=== PATIENT | female | born 1990 | race Two or more races ===

== ENCOUNTER 2017-03-05 09:17 | Emergency (ER) | payer SELFPAY ==
[~2017-03-05] VITALS: Ht 167.6 cm; Wt 72.6 kg
--- NOTE | 2017-03-05 09:41 | Emergency Room Report ---
History of Present Illness General Chief Complaint: Sore Throat Source: Patient Present Illness HPI Patient is a 27-year-old female presented after having one day of increased sore throat. Patient was noted to have some increased difficulty with swallowing. She reports having subjective fever. She denies any cough. She reports having prior history of tonsillitis. She denies any nasal congestion. She reports having an IUD. Allergies: Coded Allergies: No Known Allergies (Unverified , 03/05/17) Patient History Past Medical History: see triage record Last Menstrual Period: last month Now: No Reviewed Nursing Documentation: PMH: Agreed, PSxH: Agreed Nursing Documentation-PMH Past Medical History: No Stated History Review of Systems All Other Systems: negative except mentioned in HPI Physical Exam Vital Signs Date Time Temp Pulse Resp B/P (MAP) Pulse Ox O2 Delivery O2 Flow Rate FiO2 03/05/17 09:20 98.1 92 14 118/81 96 Room Air General Appearance: well appearing, no apparent distress, alert, GCS 15, non- toxic Head: normocephalic, atraumatic ENT: hearing grossly normal, normal voice, tonsillar swelling, pharyngeal erythema, tonsillar exudate Neck: full range of motion, supple Respiratory: no respiratory distress, speaking full sentences Musculoskeletal: no calf tenderness Neurologic: normal gait Psychiatric: mood/affect normal Skin: no rash Medical Decision Making Diagnostic Impression: Primary Impression: Acute tonsillitis ER Course Patient presented for sore throat. Differential diagnosis included but was not limited to meningitis, exudative tonsillitis, retropharyngeal abscess, epiglottitis, strep pharyngitis. The patient appears to have a tonsillitis. There is no evidence of abscess at this time. Patient's uvula is midline. The patient was given Decadron as well as IM penicillin The patient is advised to follow up with primary care doctor in 1-2 days. Patient is advised to return if any worsening condition or if any changes in status that are concerning. Last Vital Signs Date Time Temp Pulse Resp B/P (MAP) Pulse Ox O2 Delivery O2 Flow Rate FiO2 03/05/17 09:20 98.1 92 14 118/81 96 Room Air Status: improved Disposition: HOME, SELF-CARE Condition: Stable Carlos Tilley Mar 05, 2017 09:40
[2017-03-05] MEDS ORDERED: Bicillin LA 1.2 Million Units Syr IM ONE (09:45)
[2017-03-05] MEDS ORDERED: Lidocaine 2% Visc 15ml soln ORAL ONE (10:15)
[2017-03-05] MEDS ORDERED: LIDOCAINE VISC100 ML ORAL (10:27)
[2017-03-05 10:33] VITALS: BP 116/79
== END 2017-03-05 10:33 | disposition home or self-care (01) ==
LOC: EMR 09:50
DX: J03.90 Acute tonsillitis, unspecified (principal)
CPT/HCPCS: 81025; 96372; 99284; J0570; J8540; J0561